=== PATIENT | male | born 1990 | race American Indian/Alaskan Native ===

== ENCOUNTER 2019-08-01 08:20 | Emergency (ER) | payer OTHER ==
[2019-08-01] MEDS ORDERED: IPRATROPIUM/ALBUTEROL SULFATE 3 ML AMPUL.NEB IH ONE (08:37)
--- NOTE | 2019-08-01 09:11 | XRay Report ---
CHEST 1 VIEW INDICATION: Difficulty in breathing for one day. COMPARISON: None FINDINGS: Support devices: None. Heart: Within normal limits. Lungs/Pleura: No acute air space or interstitial disease. Additional findings: None. IMPRESSION: No acute findings. Signer Name: Derrick Bowens Jr, MD Signed: 08/01/2019 9:07 AM Workstation Name: [id number]
[2019-08-01 09:20] LABS: Basophils % (Auto) 0.6 % (0.0-1.8); Eosinophils # (Auto) 0.5 K/mm3 (0.0-0.4); Eosinophils % (Auto) 11.3 % (0.0-4.3); Hematocrit 45.2 % (35.5-45.6); Hemoglobin 14.9 gm/dl (11.8-15.2); Lymphocytes # (Auto) 1.1 K/mm3 (1.2-5.4); Lymphocytes % (Auto) 27.5 % (13.4-35.0); Mean Corpuscular HGB Conc 33 % (32-34); Mean Corpuscular Volume 88 fl (84-94); Monocytes # (Auto) 0.3 K/mm3 (0.0-0.8); Monocytes % (Auto) 6.7 % (0.0-7.3); Platelet Count 189 K/mm3 (140-440); Red Blood Count 5.11 M/mm3 (3.65-5.03); Red Cell Distribution Width 13.3 % (13.2-15.2)
[2019-08-01 09:30] VITALS: BP 117/82
[2019-08-01 09:35] LABS: BUN/Creatinine Ratio 8; Blood Urea Nitrogen 6 mg/dL (9-20); Calcium 8.7 mg/dL (8.4-10.2); Hemolysis Index 5
[2019-08-01] MEDS ORDERED: ALBUTEROL 2.5 MG/3 ML NEBU IH ONE (10:14)
[2019-08-01] MEDS ORDERED: IPRATROPIUM 0.02% NEBU 2.5 ML IH ONE (10:15)
--- NOTE | 2019-08-01 14:28 | Event Note ---
Date: 07/31/19 Comes in for asthma exacerbation. Improved O2 sats 95 percent to 98 percent on RA\ Discharged on Medrol dose pack and Neb soution prn in the form of Albuterol
--- NOTE | 2019-08-01 15:19 | Emergency Department Report ---
ED General Adult HPI - General Chief complaint: Adult Asthma Stated complaint: TRINITY Time Seen by Provider: 08/01/19 08:37 Source: patient, EMS Mode of arrival: Stretcher Limitations: No Limitations - History of Present Illness Initial comments: This is a 28 year old asthmatic male who does smoke. He has no prior history of intubation or hospitalization. He states his inhaler is not working. He is previously been on prednisone but not recently. He was transferred via EMS and given magnesium and Solu-Medrol. He is given nebs on arrival. He states that he has not been coughing much. He said no fever or chills. He does not complain of chest pain. -: Gradual, days(s) Severity scale (0 -10): 0 Associated Symptoms: denies other symptoms - Related Data Previous Rx's Medication Instructions Recorded Last Taken Type ALBUTEROL NEB's [Proventil 0.083% 2.5 mg IH QID PRN #50 neb 08/01/19 Unknown Rx NEBS] Prednisone [predniSONE 10 mg 10 mg PO .TAPER #1 tab.ds.pk 08/01/19 Unknown Rx (6-Day Pack, 21 Tabs)] levoFLOXacin [Levaquin] 750 mg PO QDAY #7 tablet 08/01/19 Unknown Rx Allergies Allergy/AdvReac Type Severity Reaction Status Date / Time No Known Allergies Allergy Unverified 08/01/19 08:30 ED Review of Systems ROS: Stated complaint: TRINITY Other details as noted in HPI Constitutional: denies: chills, fever Eyes: denies: eye pain, eye discharge, vision change ENT: denies: ear pain, throat pain Respiratory: shortness of breath, wheezing. denies: cough Cardiovascular: denies: chest pain, palpitations Endocrine: no symptoms reported Gastrointestinal: denies: abdominal pain, nausea, diarrhea Genitourinary: denies: urgency, dysuria Musculoskeletal: denies: back pain, joint swelling, arthralgia Skin: denies: rash, lesions Neurological: denies: headache, weakness, paresthesias Psychiatric: denies: anxiety, depression Hematological/Lymphatic: denies: easy bleeding, easy bruising ED Past Medical Hx - Past Medical History Previous Medical History?: Yes Hx Kidney Stones: No Hx Asthma: Yes - Social History Smoking Status: Never Smoker Substance Use Type: None - Medications Home Medications: Home Medications Medication Instructions Recorded Confirmed Last Taken Type ALBUTEROL NEB's [Proventil 0.083% 2.5 mg IH QID PRN #50 neb 08/01/19 Unknown Rx NEBS] Prednisone [predniSONE 10 mg 10 mg PO .TAPER #1 tab.ds.pk 08/01/19 Unknown Rx (6-Day Pack, 21 Tabs)] levoFLOXacin [Levaquin] 750 mg PO QDAY #7 tablet 08/01/19 Unknown Rx ED Physical Exam - General Limitations: No Limitations General appearance: alert, in no apparent distress - Head Head exam: Present: atraumatic, normocephalic - Eye Eye exam: Present: normal appearance. Absent: scleral icterus - ENT ENT exam: Present: mucous membranes moist - Neck Neck exam: Present: normal inspection - Respiratory Respiratory exam: Present: wheezes (bilateral 2+). Absent: respiratory distress - Cardiovascular Cardiovascular Exam: Present: regular rate, normal rhythm. Absent: systolic murmur, diastolic murmur, rubs, gallop - GI/Abdominal GI/Abdominal exam: Present: soft, normal bowel sounds. Absent: distended, tenderness, guarding, rebound, rigid - Rectal Rectal exam: Present: deferred - Extremities Exam Extremities exam: Present: normal inspection - Back Exam Back exam: Present: normal inspection - Neurological Exam Neurological exam: Present: alert, oriented X3, CN II-XII intact. Absent: motor sensory deficit - Psychiatric Psychiatric exam: Present: normal affect, normal mood - Skin Skin exam: Present: warm, dry, intact, normal color. Absent: rash ED Course Vital Signs 08/01/19 08/01/19 08/01/19 08:37 08:38 08:42 Temperature 97.7 F Pulse Rate 109 H Pulse Rate [ 112 H Bilateral Throughout] Respiratory 18 14 Rate Respiratory 18 Rate [Bilateral Throughout] Blood Pressure 140/70 [Left] O2 Sat by Pulse 97 95 Oximetry 08/01/19 08/01/19 08/01/19 09:29 10:15 10:32 Temperature Pulse Rate 71 83 Pulse Rate [ 115 H Bilateral Throughout] Respiratory 20 17 Rate Respiratory 18 Rate [Bilateral Throughout] Blood Pressure 117/82 117/82 [Left] O2 Sat by Pulse 95 95 Oximetry - Reevaluation(s) Reevaluation #1: The patient had persistent wheezing. His sat was 90-92 on room air. Thus, he was referred to the hospitalist service for consideration for admission. Claus Montanez discharged him. 08/01/19 15:18 ED Medical Decision Making - Lab Data Result diagrams: 08/01/19 09:00 08/01/19 09:00 Critical care attestation.: If time is entered above; I have spent that time in minutes in the direct care of this critically ill patient, excluding procedure time. ED Disposition Clinical Impression: Exacerbation of asthma Qualifiers: Asthma severity: moderate Asthma persistence: persistent Qualified Code(s): J45.41 - Moderate persistent asthma with (acute) exacerbation Disposition: TO HOME OR SELFCARE Is pt being admited?: No Does the pt Need Aspirin: No Condition: Stable Instructions: Asthma (ED) Prescriptions: levoFLOXacin [Levaquin] 750 mg PO QDAY #7 tablet Prednisone [predniSONE 10 mg (6-Day Pack, 21 Tabs)] 10 mg PO .TAPER #1 tab.ds.pk ALBUTEROL NEB's [Proventil 0.083% NEBS] 2.5 mg IH QID PRN #50 neb PRN Reason: Wheezing Referrals: PRIMARY CARE,MD [Primary Care Provider] - 3-5 Days Forms: Work/School Release Form(ED) Time of Disposition: 15:19 Print Language: LIBERIAN
== END 2019-08-01 15:00 | disposition home or self-care (01) ==
LOC: ED 08:20
DX: J45.901 Unspecified asthma with (acute) exacerbation (principal)
CPT/HCPCS: 36415; 71045; 80048; 85025; 94640; 94644

== ENCOUNTER 2021-03-06 12:13 | Emergency (ER) | payer OTHER ==
[2021-03-06] MEDS ORDERED: ALBUTEROL 2.5 MG/3 ML NEBU IH ONE ×2 (12:18→15:55)
[2021-03-06] MEDS ORDERED: methylPREDNISolone Sod Succinate 125 MG/2 ML INJ IV ONE (12:18)
[2021-03-06] MEDS ORDERED: SODIUM CHLORIDE 0.9% 1000 ML 1,000 ML IV ONE (12:18)
[2021-03-06] MEDS ORDERED: IPRATROPIUM 0.02% NEBU 2.5 ML IH ONE ×2 (12:20→15:55)
[2021-03-06] MEDS ORDERED: MAGNESIUM SULFATE 2 GM/50 ML BAG IV ONE (12:20)
--- NOTE | 2021-03-06 12:21 | Emergency Department Report ---
<ROSIO ASHBY - Last Filed: 03/06/21 19:48> ED Asthma HPI - General Stated Complaint: ASTHMA Time Seen by Provider: 03/06/21 12:18 - History of Present Illness Initial Comments: 30-year-old male with a past medical history of asthma presents to the ER today with complaints of asthma attack. Patient states that he started with a cold Monday and since then he has had increasing cough with associated wheezing, shortness of breath and chest tightness. Patient states that he has been using his albuterol MDI multiple times per day but states that is not really helping his symptoms. He denies any apparent ill contacts or recent travel. He denies any fever or chills. He states that the last time he was admitted for his asthma was when he was a child. He reports no other symptoms at this time. MD Complaint: "asthma attack" -: Gradual, days(s) (3) - Related Data Previous Rx's Medication Instructions Recorded Last Taken Type Azithromycin [Zithromax Z-JAMES] 250 mg PO DAILY #1 pack 03/06/21 Unknown Rx Ipratropium/Albuterol Sulfate 1 ampul IH Q4HR #1 box 03/06/21 Unknown Rx [DUONEB *Not for PRN Use*] predniSONE [Deltasone] 60 mg PO QDAY #15 tab 03/06/21 Unknown Rx Allergies Allergy/AdvReac Type Severity Reaction Status Date / Time No Known Allergies Allergy Unverified 08/01/19 08:30 ED Review of Systems Comment: All other systems reviewed and negative Constitutional: denies: chills, fever ENT: congestion, other (Rhinorrhea) Respiratory: cough, shortness of breath, wheezing Cardiovascular: chest pain (Chest tightness) ED Past Medical Hx - Past Medical History Hx Kidney Stones: No Hx Asthma: Yes - Social History Smoking Status: Never Smoker Substance Use Type: None - Medications Home Medications: Home Medications Medication Instructions Recorded Confirmed Last Taken Type Azithromycin [Zithromax Z-JAMES] 250 mg PO DAILY #1 pack 03/06/21 Unknown Rx Ipratropium/Albuterol Sulfate 1 ampul IH Q4HR #1 box 03/06/21 Unknown Rx [DUONEB *Not for PRN Use*] predniSONE [Deltasone] 60 mg PO QDAY #15 tab 03/06/21 Unknown Rx ED Physical Exam - General General appearance: alert, in distress (Mild respiratory distress) - Head Head exam: Present: atraumatic, normocephalic, normal inspection - Eye Eye exam: Present: normal appearance, PERRL, EOMI Pupils: Present: normal accommodation - ENT ENT exam: Present: normal exam, mucous membranes moist - Neck Neck exam: Present: normal inspection, full ROM - Respiratory Respiratory exam: Present: respiratory distress (Mild), wheezes (Diffuse expiratory inspiratory wheezing), decreased breath sounds - Cardiovascular Cardiovascular Exam: Present: regular rate, normal rhythm, normal heart sounds - GI/Abdominal GI/Abdominal exam: Present: soft. Absent: distended, guarding, rebound - Neurological Exam Neurological exam: Present: alert, oriented X3, CN II-XII intact, normal gait - Psychiatric Psychiatric exam: Present: normal affect, normal mood - Skin Skin exam: Present: intact ED Medical Decision Making - Lab Data Result diagrams: 03/06/21 12:35 03/06/21 12:35 - Radiology Data Radiology results: report reviewed Patient: ANITA NOVOA MR#: [id number] : 1990 Acct:[id number] Age/Sex: 30 / M ADM Date: 03/06/21 Loc: ED Attending Dr: Ordering Physician: ROSIO ASHBY Date of Service: 03/06/21 Procedure(s): XR chest routine 2V Accession Number(s): [id number] cc: ROSIO ASHBY Fluoro Time In Minutes: CHEST 2 VIEWS INDICATION / CLINICAL INFORMATION: Cough/asthma/hypoxia. COMPARISON: 08/01/2019 and FINDINGS: SUPPORT DEVICES: None. HEART / MEDIASTINUM: No significant abnormality. LUNGS / PLEURA: No significant pulmonary or pleural abnormality. No pneumothorax. ADDITIONAL FINDINGS: No significant additional findings. IMPRESSION: 1. No acute findings. Signer Name: Hong Ledesma MD Signed: 03/06/2021 4:52 PM Workstation Name: [id number] Transcribed By: Dictated By: HONG LEDESMA III Electronically Authenticated By: HONG LEDESMA III Signed Date/Time: 03/06/211651 DD/ 51 TD/TT: - Medical Decision Making Patient received IV Solu-Medrol, and a 1 hour-long DuoNeb treatment as well as 2 g of IV mag. Patient reported feeling slightly better after treatments but he still feels like he is not getting enough air. Not currently in any respiratory distress. He is moving air better but he still wheezing on exam. He was ambulated twice in fast track and it was reported to me by the tech that his O2 sat dropped to 89% and patient appeared short of breath. He was 92% at rest. 1550: Discussed case with Dr Carbajal who saw and evaluated patient. See his note for further detail. He recommends adding a chest x-ray, continuous nebs and admitting patient. 1700: CXR shows nothing acute. Pt currently getting his continuous neb. Dr Gomez, hospitalist consulted for admission. He recommend adding blood gas and he will see patient. Patient was seen and evaluated by Dr. Gomez, based on his evaluation he felt that patient was stable enough to be discharged home with a prescription for albuterol and Atrovent neb since he already has a machine at home, steroids, and antibiotics. I did discuss that if his decision with Dr. Quezada who recommended that we obser ve patient for another 1-2 hours before discharging immediately. The second continuous nebulizer treatment patient did report feeling better. Repeat lung exam showed that he was moving air better, he was still wheezing but it did improve. 193: Patient was ambulated again in the ER. His pulse ox maintained between 94 to 95% during ambulation. He did not appear to be in any acute respiratory di stress during ambulation. She states that he still feels better, does not feel as bad as when he first came into the ER. Patient was also evaluated again by Dr. Quezada during ambulation. See his note for further detail. Together with me, Dr. Ayala, and the patient, the decision was made to have patient be discharged home patient agreed to. Patient will be discharged home with a prescription for his albuterol/Atrovent nebs, prednisone and a Z-James. But patient was given clear warnings that if his symptoms got worse in any way to return immediately to the ER which he expressed understanding of. ED Disposition Clinical Impression: Asthma exacerbation Disposition: DC-01 TO HOME OR SELFCARE Is pt being admited?: No Does the pt Need Aspirin: No Condition: Stable Instructions: Asthma, Adult, [id number] Additional Instructions: Recommend that you use albuterol/Atrovent nebulizer treatments every 4 hours as needed for shortness of breath, wheezing or chest tightness. Start taking the prednisone tomorrow and also start taking the antibiotics as prescribed. Recommend that you follow-up closely with your primary care doctor listed on your discharge instructions but return to the ER immediately if your symptoms worsens in any way. Prescriptions: predniSONE [Deltasone] 60 mg PO QDAY #15 tab Ipratropium/Albuterol Sulfate [DUONEB *Not for PRN Use*] 1 ampul IH Q4HR #1 box Azithromycin [Zithromax Z-JAMES] 250 mg PO DAILY #1 pack Referrals: JEANMARIE BRAVO MD [Staff Physician] - 2-3 Days Forms: Work/School Release Form(ED) Time of Disposition: 19:41 <CLARKE QUEZADA - Last Filed: 03/06/21 20:02> ED Review of Systems ROS: Stated complaint: ASTHMA Other details as noted in HPI ED Course Vital Signs 03/06/21 03/06/21 12:17 17:16 Temperature 98.0 F Pulse Rate 86 100 H Respiratory 23 19 Rate Blood Pressure 147/93 Blood Pressure 142/85 [Left] O2 Sat by Pulse 94 97 Oximetry ED Medical Decision Making - Lab Data Result diagrams: 03/06/21 12:35 03/06/21 12:35 - Medical Decision Making Called to assess patient. I personally went and interviewed and examined the patient myself. The patient is a 30-year-old male with history of asthma who presented with 3 days of shortness of breath and wheezing despite using his home albuterol MDI. The patient received several treatments here in the emergency department including 125 mg of IV Solu-Medrol, 1 hour of DuoNeb's, and 2 g of IV magnesium. Despite this treatment the patient was found to be satting 92% on room air with desaturations to the high 80s with ambulation. On my exam, the patient is not in respiratory distress but is tachypneic. Lung auscultation reveals diffuse inspiratory and expiratory wheezes bilaterally. We will call respiratory for continuous nebs, order chest x-ray to rule out pneumonia, and plan to admit the patient to the hospitalist for further management. On repeat assessment at 6:20 PM, the patient is sitting up in the bed. He reports that he feels much better. Denies feeling short of breath any longer. Nonetheless, the patient's oxygen saturation ranges from 93 to 95% on room air, maintained with ambulation. Lung auscultation reveals coarse breath sounds throughout with only faint end expiratory wheezes. Nonetheless, given all of the interventions required, we will continue to observe the patient on the monitor to ensure that he does not have further desaturation and or worsening respiratory status. On repeat assessment at 7:20 PM, the patient remains without significant symptoms. Lung auscultation reveals coarse breath sounds but no wheezing. His oxygen saturation remains 94 to 95% during ambulation. Given that the patient needs to fill his prescriptions today, he will be discharged home on a steroids and with every 4 hour duo nebs. I did offer the patient further observation to ensure that his respiratory status does not worsen but he insists on discharge now and understands that foregoing further observation does confer some risk of possible deterioration after discharge. The patient was given very strict return precautions. Critical Care Time: Yes (35 mins) Critical care time in (mins) excluding proc time.: 35 Critical care attestation.: If time is entered above; I have spent that time in minutes in the direct care of this critically ill patient, excluding procedure time. Critical care time was spent in the assessment and management of severe asthma exacerbation with hypoxia requiring continuous DuoNebs and IV magnesium
[2021-03-06 12:50] LABS: Basophils % (Auto) 0.4 % (0.0-1.8); Eosinophils # (Auto) 0.6 K/mm3 (0.0-0.4); Eosinophils % (Auto) 9.2 % (0.0-4.3); Hematocrit 44.1 % (35.5-45.6); Hemoglobin 14.4 gm/dl (11.8-15.2); Lymphocytes # (Auto) 1.4 K/mm3 (1.2-5.4); Lymphocytes % (Auto) 20.3 % (13.4-35.0); Mean Corpuscular HGB Conc 33 % (32-34); Mean Corpuscular Volume 89 fl (84-94); Monocytes # (Auto) 0.8 K/mm3 (0.0-0.8); Platelet Count 213 K/mm3 (140-440); Red Blood Count 4.97 M/mm3 (3.65-5.03); Red Cell Distribution Width 12.8 % (13.2-15.2)
[2021-03-06 13:15] LABS: Alanine Aminotransferase 24 units/L (7-56); Albumin 4.1 g/dL (3.9-5); BUN/Creatinine Ratio 8; Blood Urea Nitrogen 7 mg/dL (9-20); Calcium 9.1 mg/dL (8.4-10.2); Hemolysis Index 12
--- NOTE | 2021-03-06 16:57 | XRay Report ---
CHEST 2 VIEWS INDICATION / CLINICAL INFORMATION: Cough/asthma/hypoxia. COMPARISON: 08/01/2019 and FINDINGS: SUPPORT DEVICES: None. HEART / MEDIASTINUM: No significant abnormality. LUNGS / PLEURA: No significant pulmonary or pleural abnormality. No pneumothorax. ADDITIONAL FINDINGS: No significant additional findings. IMPRESSION: 1. No acute findings. Signer Name: Cristino Ledesma MD Signed: 03/06/2021 4:52 PM Workstation Name: [id number]
--- NOTE | 2021-03-06 18:06 | Event Note ---
Date: 03/06/21 Pt seen and evaluated in ED for Asthma exacerbation. Pt treated with IV steroid therapy and magnesium with improvement in symptoms. Pt medically optimized and does not meet admission criteria at this time. Pt may be discharged home wit steroid taper, antibiotic therapy, as well as nebulizer therapy. Pt has I/E ratio 1:2. - General General appearance: alert, in distress (Mild respiratory distress) - Head Head exam: Present: atraumatic, normocephalic, normal inspection - Eye Eye exam: Present: normal appearance, PERRL, EOMI Pupils: Present: normal accommodation - ENT ENT exam: Present: normal exam, mucous membranes moist - Neck Neck exam: Present: normal inspection, full ROM - Respiratory Respiratory exam: Present: Good air entry bilaterally, - Cardiovascular Cardiovascular Exam: Present: regular rate, normal rhythm, normal heart sounds - GI/Abdominal GI/Abdominal exam: Present: soft. Absent: distended, guarding, rebound - Neurological Exam Neurological exam: Present: alert, oriented X3, CN II-XII intact, normal gait - Psychiatric Psychiatric exam: Present: normal affect, normal mood - Skin Skin exam: Present: intact
[2021-03-06 20:07] VITALS: BP 128/72
== END 2021-03-06 20:00 | disposition home or self-care (01) ==
LOC: ED 12:13
DX: J45.901 Unspecified asthma with (acute) exacerbation (principal); Z79.899 Other long term (current) drug therapy
CPT/HCPCS: 36415; 71046; 80053; 83735; 85025; 96361; 96365; 96375; 99284; J2930; J3475; J7030